=== PATIENT | male | born 2000 | race Caucasian/White ===

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

== ENCOUNTER 2025-04-15 08:44 | Emergency (ER) | payer MEDICAID ==
[~2025-04-15] VITALS: Ht 182.9 cm; Wt 66.5 kg
[2025-04-15 09:03] VITALS: BP 108/46; PULSE 86; O2SAT 100
--- NOTE | 2025-04-15 10:00 | RADIOLOGY REPORT ---
OF [facility] EXAMINATION: DI UNI RIBS WITH PA CHEST INDICATION: Left rib pain COMPARISON: None TECHNIQUE: Frontal view of the chest and 2 views of the left ribs history FINDINGS: No focal consolidation, pleural effusion or significant pneumothorax. Normal cardiomediastinal silhouette. No displaced left rib fracture. IMPRESSION: No acute cardiopulmonary disease. No displaced left rib fracture.
[2025-04-15] MEDS ORDERED: IBUP-1986 PO (11:22)
[2025-04-15] MEDS ORDERED: LIDO-52 TOP (11:22)
--- NOTE | 2025-04-15 11:22 | Physician Documentation ---
History of Present Illness ~ Chief Complaint: Rib pain Stated Complaint: L RIB/ INJURY Time Seen by MD: 10:08 Primary Medical Doctor: [facility] HPI This is a 24-year-old male who presents with one-week of left-sided chest wall pain after dropping a transmission on his chest while working on a vehicle, patient reports no cough, hemoptysis, or fever. Patient reports no other acute symptoms or concerns. Tetanus within 5 Years?: No Allergies: Coded Allergies: No Known Allergies (Unverified , 04/15/25) Active Prescriptions See Medication Reconciliation Form. Medication Reconciliation Scheduled Ibuprofen (Ibuprofen), 1 TAB PO Q8H Lidocaine (Lidoderm), 1 PATCH TOP DAILY Past Medical History Past Medical History: No Pertinent History, Asthma Past Surgical History: no surgical history Alcohol Use: Occasionally Drug Use: none Lives with: Family Lives In: Home Occupation: student, child Review of Systems ROS As stated above in the HPI, otherwise all systems are reviewed and negative. Physical Exam Vital Signs: Temperature: 99.2, Source: Oral, Heart Rate: 86, Respiratory Rate: 18, BP: 108/46, Pulse Oximetry: 100, Weight: 66.500 Oxygen Flow Rate: 0 Physical Exam VITALS: Reviewed and as above. GENERAL: Alert, nontoxic appearing, no apparent distress. RESPIRATORY: No increased work of breathing, no respiratory distress, speaking in full clear sentences, clear lung sounds all [place] CHEST: Left anterior and lateral chest tender to palpation, no paradoxical movement, no crepitus, no step-offs CV: Regular rate and rhythm no murmur GI: Nontender MUSCULOSKELETAL: SKIN: No erythema or ecchymosis to skin of chest wall Progress Results/Orders Results/Orders Completed Orders - [facility]B[place]IA QUINN [employer] Ketorolac Trometh 15mg/Ml Vial (Toradol (04/15/25 11:15) Lidocaine 5% Patch (Lidoderm 5% Patch) (04/15/25 11:25) Vital Signs 04/15/25 04/15/25 04/15/25 09:03 11:27 11:35 Temp 99.2 99.2 Pulse 86 Resp 18 16 B/P (MAP) 108/46 Pulse Ox 100 O2 Flow Rate 0 EKG/XRAY/CT/US/VASC/MRI Chest X-Ray : Additional Comments Exam: UNI RIBS WITH [facility] EX[facility]: DI UNI RIBS WITH PA CHEST INDICATION: Left rib pain COMPARISON: None TECHNIQUE: Frontal view of the chest and 2 views of the left ribs history FINDINGS: No focal consolidation, pleural effusion or significant pneumothorax. Normal cardiomediastinal silhouette. No displaced left rib fracture. IMPRESSION: No acute cardiopulmonary disease. No displaced left rib fracture. Electronically Signed by:AJ FINCH MD Date & Time: 04/15/25957 Dictated by: AJ FINCH MD Dictation date and time: 04/15/25943 I have reviewed and agree with the radiology report. I have reviewed and interpreted the imaging as: No focal consolidation, no pneumothorax, no displaced rib fractures Medical Decision Making Additional information obtaine: N/A Findings This otherwise well-appearing 24-year-old male presented with left chest wall pain after dropping a transmission on his chest one-week prior, physical exam was consistent with chest wall tenderness though reassuring no ecchymosis, erythema, flail chest, crepitus, or step-offs. Imaging obtained which demonstrated no evidence of displaced rib fractures and no evidence of focal consolidation or pneumothorax. Patient is otherwise well-appearing and we will be treated with nonnarcotic pain medications, vital signs are stable and patient appropriate for outpatient follow up. Patient provided home care instructions, return to care precautions, and follow up instructions which he verbalized understanding of. Differential Dx:Considerations: Include: Chest wall contusion, Flail chest, Myocardial contusion, Pneumothorax, Pulmonary contusion, Rib fracture, Renal contusion, Splenic fracture, Tension pneumothorax Departure Time of Disposition: 11:20 Disposition: 01 HOME / SELF CARE / HOMELESS Impression: Primary Impression: Rib pain Condition: Improved Discharge Instructions: Rib Contusion Additional Instructions: Please take the ibuprofen as prescribed, recommend taking this medication with food to avoid stomach upset. Start taking the medication 10 hours after your Toradol injection. You may use Tylenol as needed for breakthrough pain as directed by [id number] packaging. Please follow up with your primary care provider in the next few days. Please return to the emergency department for any new or worsening concerning symptoms. Referrals: NO PRIMARY CARE PROVIDER (PCP) Prescriptions Lidocaine (Lidoderm) 5 % Adh..patch 1 PATCH TOP DAILY for 10 Days, #10 PATCH 0 Refills may wear up to 12 hours Prov: ALBANIA QUINN 04/15/25 Ibuprofen (Ibuprofen) 800 Mg Tablet 1 TAB PO Q8H for pain for 10 Days, #30 TAB 0 Refills Prov: ALB[place]IA QUINN 04/15/25 Education Educated: Patient Educated regarding: diagnosis, treatment, prognosis, need for follow up Signature Scribe Signature: No scribe Attestation: The note accurately reflects work and decisions made by me.MARIA LUISA Pace 04/15/25 20:27 ALBANIA QUINN Apr 15, 2025 11:22
[2025-04-15 11:27] VITALS: RESP 16
[2025-04-15] MEDS: ketorolac trometh 15mg/ml vial 15 MG/ML ML IM ONE (11:27)
[2025-04-15 11:35] VITALS: TEMP 99.2
== END 2025-04-15 11:36 | disposition home or self-care (01) ==
LOC: ER 08:44
DX: R07.89 Other chest pain (principal); Z72.89 Other problems related to lifestyle; Z79.899 Other long term (current) drug therapy
CPT/HCPCS: 71101; 96372; 99283; J1885